=== PATIENT | female | born 1945 | race Caucasian/White ===

== ENCOUNTER 2019-01-25 09:30 | Emergency (ER) | payer MEDICARE, OTHER ==
[~2019-01-25] VITALS: Ht 160 cm; Wt 59.0 kg
[~2019-01-25 09:30] MED LIST: ANTIVERT/2525 MG PO; METHOTREXATE2.5 M2; ZOFRAN ODT4 MG SL
[2019-01-25 09:46] VITALS: Ht 160 cm; Wt 59.0 kg
[2019-01-25 11:39] VITALS: BP 158/84
== END 2019-01-25 13:03 | disposition home or self-care (01) ==
LOC: ED 09:30
DX: S93.402A Sprain of unspecified ligament of left ankle, initial encounter (principal); M06.9 Rheumatoid arthritis, unspecified; E78.00 Pure hypercholesterolemia, unspecified; Z86.73 Personal history of transient ischemic attack (TIA), and cerebral infarction without residual deficits; W18.11XA Fall from or off toilet without subsequent striking against object, initial encounter; Y93.89 Activity, other specified; Y92.89 Other specified places as the place of occurrence of the external cause; Y99.8 Other external cause status
CPT/HCPCS: Q0092

== ENCOUNTER 2019-08-22 02:36 | Inpatient (IN) | payer MEDICARE, OTHER ==
[~2019-08-22] VITALS: Ht 157.5 cm; Wt 54.4 kg
[2019-08-22 02:50] VITALS: Ht 157.5 cm; Wt 54.4 kg
[2019-08-22 05:07] LABS: CARBON DIOXIDE 25.6 mmol/L (21-32); CHLORIDE SERUM 107 mmol/L (98-107); CREATININE SERUM 0.9 mg/dL (0.6-1.0); GLUCOSE SERUM 132 mg/dL (74-106); POTASSIUM SERUM 3.9 mmol/L (3.5-5.1); SODIUM SERUM 141 mmol/L (136-145)
[2019-08-22 05:12] LABS: ALKALINE PHOSPHATASE 78 U/L (46-116); ALT/SGPT 27 U/L (14-59); AST/SGOT 18 U/L (15-37); BILIRUBIN TOTAL 0.94 mg/dL (0.20-1.00); TOTAL PROTEIN, SERUM 6.7 g/dL (6.4-8.2)
[2019-08-22] MEDS ORDERED: ATORVASTATIN CA10 M1 (05:16)
[2019-08-22] MEDS ORDERED: TREXALL5 MG PO ×2 (05:18→05:23)
[2019-08-22 05:21] LABS: ALBUMIN 3.1 g/dL (3.4-5.0)
[2019-08-22] MEDS ORDERED: FOLGARD1 TAB (05:24)
[2019-08-22] MEDS ORDERED: PRA40 (05:24)
[2019-08-22 05:31] LABS: PLATELET COUNT 226 x10^3mcL (130-400); RED CELL DISTRIBUTION WIDTH 14.7 % (11.5-14.5)
[2019-08-22 05:38] LABS: MONOCYTE 13 % (0-7); SEGMENTED NEUTROPHILS 71 % (37-75)
[2019-08-22 05:39] LABS: rbc morphology (normal/abnorm) NORMAL (NORMAL)
[2019-08-22 05:40] LABS: PLATELET MORPHOLOGY LARGE PLATELET SEEN
[2019-08-22 12:11] VITALS: BP 124/56
[2019-08-22 17:23] VITALS: BP 123/59
[2019-08-22 20:04] VITALS: BP 136/53
[2019-08-23 05:39] VITALS: BP 128/59
[2019-08-23 06:37] LABS: CALCIUM 8.2 mg/dL (8.5-10.1); CARBON DIOXIDE 25.5 mmol/L (21-32); CHLORIDE SERUM 107 mmol/L (98-107); CREATININE SERUM 0.6 mg/dL (0.6-1.0); GLUCOSE SERUM 120 mg/dL (74-106); POTASSIUM SERUM 3.4 mmol/L (3.5-5.1); SODIUM SERUM 139 mmol/L (136-145)
[2019-08-23 06:52] LABS: BASOPHIL % 0.6 % (0-2); PLATELET COUNT 201 x10^3mcL (130-400)
[2019-08-23 07:11] LABS: RED CELL DISTRIBUTION WIDTH 15.6 % (11.5-14.5)
[2019-08-23 08:02] VITALS: BP 131/63
[2019-08-23 12:42] VITALS: BP 136/69
[2019-08-23 20:15] VITALS: BP 137/73
[2019-08-24 05:32] VITALS: BP 112/54
[2019-08-24 06:32] LABS: BASOPHIL % 0.5 % (0-2); PLATELET COUNT 190 x10^3mcL (130-400)
[2019-08-24 06:35] LABS: RED CELL DISTRIBUTION WIDTH 15.8 % (11.5-14.5)
[2019-08-24 07:23] LABS: CARBON DIOXIDE 24.6 mmol/L (21-32); CHLORIDE SERUM 106 mmol/L (98-107); CREATININE SERUM 0.8 mg/dL (0.6-1.0); GLUCOSE SERUM 118 mg/dL (74-106); POTASSIUM SERUM 3.7 mmol/L (3.5-5.1); SODIUM SERUM 140 mmol/L (136-145)
[2019-08-24 08:15] VITALS: BP 108/46
[2019-08-24 13:38] VITALS: BP 118/51
[2019-08-24 17:29] VITALS: BP 136/56
[2019-08-24 21:01] VITALS: BP 132/60
[2019-08-25 05:56] VITALS: BP 141/72
[2019-08-25 07:05] LABS: BASOPHIL % 0.6 % (0-2); PLATELET COUNT 225 x10^3mcL (130-400)
[2019-08-25 07:06] LABS: RED CELL DISTRIBUTION WIDTH 15.3 % (11.5-14.5)
[2019-08-25 08:26] VITALS: BP 145/69
[2019-08-25 12:55] VITALS: BP 155/76
[2019-08-25 18:06] VITALS: BP 121/59
[2019-08-25 20:05] VITALS: BP 100/61
[2019-08-26 06:50] LABS: CALCIUM 7.7 mg/dL (8.5-10.1); CARBON DIOXIDE 28.2 mmol/L (21-32); CHLORIDE SERUM 108 mmol/L (98-107); CREATININE SERUM 0.6 mg/dL (0.6-1.0); GLUCOSE SERUM 122 mg/dL (74-106); POTASSIUM SERUM 3.3 mmol/L (3.5-5.1); SODIUM SERUM 140 mmol/L (136-145)
[2019-08-26 06:56] LABS: BASOPHIL % 0.7 % (0-2); PLATELET COUNT 218 x10^3mcL (130-400)
[2019-08-26 07:05] LABS: RED CELL DISTRIBUTION WIDTH 15.9 % (11.5-14.5)
[2019-08-26 08:42] VITALS: BP 110/53
[2019-08-26 12:10] VITALS: BP 129/61
[2019-08-26 17:26] VITALS: BP 128/56
[2019-08-26 19:33] VITALS: BP 117/59
[2019-08-27 05:18] VITALS: BP 123/59
[2019-08-27 07:25] LABS: BASOPHIL % 0.9 % (0-2); PLATELET COUNT 259 x10^3mcL (130-400)
[2019-08-27 07:55] LABS: CALCIUM 7.9 mg/dL (8.5-10.1); CARBON DIOXIDE 25.6 mmol/L (21-32); CHLORIDE SERUM 109 mmol/L (98-107); CREATININE SERUM 0.5 mg/dL (0.6-1.0); GLUCOSE SERUM 76 mg/dL (74-106); POTASSIUM SERUM 3.5 mmol/L (3.5-5.1); SODIUM SERUM 142 mmol/L (136-145)
[2019-08-27 08:52] VITALS: BP 116/53
[2019-08-27 12:35] VITALS: BP 122/60
[2019-08-27 16:03] VITALS: BP 127/60
[2019-08-27 16:18] VITALS: BP 127/60
== END 2019-08-27 17:15 | DRG 493 ==
LOC: ED 02:36 → MU 09:09 → DU 09:09 → EDBEDREQSVC 09:13 → MU 09:15
PROVIDERS: Emergency Medicine; Orthopaedic Surgery; ADMIT Internal Medicine
PROC: 0QSH36Z Reposition Left Tibia with Intramedullary Internal Fixation Device, Percutaneous Approach (ICD-10-PCS; 2019-08-23)
PROC: 0QSG04Z Reposition Right Tibia with Internal Fixation Device, Open Approach (ICD-10-PCS; principal; 2019-08-23 15:30)
PROC: 0QSH04Z Reposition Left Tibia with Internal Fixation Device, Open Approach (ICD-10-PCS; 2019-08-25)
DX: S82.201A Unspecified fracture of shaft of right tibia, initial encounter for closed fracture (principal); S82.202A Unspecified fracture of shaft of left tibia, initial encounter for closed fracture; I69.351 Hemiplegia and hemiparesis following cerebral infarction affecting right dominant side; D62 Acute posthemorrhagic anemia; E87.6 Hypokalemia; W18.39XA Other fall on same level, initial encounter; Y93.89 Activity, other specified; Y92.89 Other specified places as the place of occurrence of the external cause; Y99.8 Other external cause status; M06.9 Rheumatoid arthritis, unspecified; Z90.710 Acquired absence of both cervix and uterus; I48.91 Unspecified atrial fibrillation; Z82.3 Family history of stroke; Z82.49 Family history of ischemic heart disease and other diseases of the circulatory system; Z20.828 Contact with and (suspected) exposure to other viral communicable diseases
CPT/HCPCS: 97110-GP; 97112-GP; 97530-GP; G0378; J0171; J0690; J1170; J1650; J1885; J2175; J2250; J2270; J2274; J2405; J3010; J3490; J7030; Q0092

== ENCOUNTER → 2019-09-10 | Outpatient (CLI) | payer MEDICARE, OTHER ==
[~2019-09-10] MED LIST changes: +ATORVASTATIN CA10 M1; +FOLGARD1 TAB; +PRA40; +TREXALL5 MG PO
== END | disposition home or self-care (01) ==
LOC: RD 11:20
DX: S82.202A Unspecified fracture of shaft of left tibia, initial encounter for closed fracture (principal); S82.201A Unspecified fracture of shaft of right tibia, initial encounter for closed fracture; X58.XXXA Exposure to other specified factors, initial encounter; Y92.9 Unspecified place or not applicable